=== PATIENT | female | born 1990 | race Caucasian/White ===

== ENCOUNTER 2017-12-27 19:06 | Day surgery (SDC) | payer OTHER ==
[~2017-12-27] VITALS: Ht 160 cm; Wt 65.9 kg
[~2017-12-27 19:06] MED LIST: AMBIEN10 MG PO; MOTRIN800 MG PO; NOHOMEMEDS; celeXA PO
[2017-12-27 20:04] LABS: APPEARANCE CLOUDY ((CLEAR)); BILIRUBIN NEGATIVE; BLOOD MODERATE; COLOR YELLOW ((YELLOW)); GLUCOSE (STRIP) NEGATIVE; KETONES 80; LEUKOCYTES SMALL; NITRITE NEGATIVE; PROTEIN (STRIP) 30; SPECIFIC GRAVITY 1.025 (1.000-1.030); UROBILINOGEN 0.2 MG/DL (0.2-1.0)
[2017-12-27 20:11] LABS: BACTERIA RARE /HPF; EPITHELIAL CELLS 3+ /HPF; MUCUS TRACE /LPF; RED BLOOD CELLS 0-5 /HPF (0-5)
[2017-12-27 20:48] LABS: HEMATOCRIT 42.4 % (36.0-46.0); HEMOGLOBIN 15.2 G/DL (11.9-15.5); MCHC 35.8 G/DL (30.0-36.0); MCV 92.2 FL (83-99); PLATELET COUNT 276 K/uL (156-360); RBC DIS.WIDTH-CV 12.4 % (11.8-14.6); RBC DIS.WIDTH-SD 41.8 % (39-53); WHITE BLOOD COUNT 22.7 K/uL (4.1-10.2)
[2017-12-27 20:49] LABS: ALBUMIN 4.4 g/dL (3.2-4.8)
[2017-12-27 20:50] LABS: CHLORIDE 104 mEq/L (99-109); POTASSIUM 3.8 mEq/L (3.7-5.4); SODIUM 140 mEq/L (136-147)
[2017-12-27 20:52] LABS: GLUCOSE 94 mg/dL (70-99); TOTAL PROTEIN 7.9 g/dL (6.4-8.3)
[2017-12-27 20:54] LABS: TOTAL BILIRUBIN 2.9 mg/dL (0.0-1.0)
[2017-12-27 20:55] LABS: ALKALINE PHOSPHATASE 61 IU/L (3-129)
[2017-12-27 20:56] LABS: CREATININE 0.7 mg/dL (0.6-1.3); GFR ESTIMATE (CALCULATED) > 59 mL/min/
[2017-12-27 20:57] LABS: AST (GOT) 17 IU/L (2-34); UREA NITROGEN (BUN) 11 mg/dL (9-23)
[2017-12-27 20:59] LABS: ALT (GPT) 16 IU/L (3-49); LIPASE 22 U/L (1.0-51.0)
[2017-12-27 21:10] LABS: QUANTITATIVE HCG < 4.0 MIU/ML
[2017-12-27 21:23] LABS: BASOPHIL (%) 0.2 % (0-1); BASOPHIL COUNT 0.1 K/uL (0-0.1); EOSINOPHIL (%) 0 % (0-5); HEMATOCRIT 41.8 % (36.0-46.0); HEMOGLOBIN 14.9 G/DL (11.9-15.5); IMMATURE GRANULOCYTE (%) 0.6 % (0.0-0.7); LYMPHOCYTE (%) 4.9 % (15-42); LYMPHOCYTE COUNT 1.1 K/uL (1.0-2.8); MCH 32.5 PG (29.0-34.0); MCHC 35.6 G/DL (30.0-36.0); MCV 91.3 FL (83-99); MONOCYTE (%) 3.3 % (3-12); MONOCYTE COUNT 0.8 K/uL (0-0.8); NEUTROPHIL COUNT 20.8 K/uL (1.8-6.4); PLATELET COUNT 256 K/uL (156-360); RBC DIS.WIDTH-CV 12.4 % (11.8-14.6); RBC DIS.WIDTH-SD 41.1 % (39-53); RED BLOOD COUNT 4.58 M/uL (3.80-5.20); WHITE BLOOD COUNT 22.8 K/uL (4.1-10.2)
[2017-12-28 05:07] VITALS: BP 141/66
[2017-12-28 07:17] VITALS: BP 127/73
[2017-12-28 11:00] VITALS: BP 127/63
[2017-12-28 11:44] VITALS: BP 106/67
[2017-12-28 11:53] LABS: HEMATOCRIT 38.4 % (36.0-46.0); HEMOGLOBIN 13.2 G/DL (11.9-15.5); MCH 32.4 PG (29.0-34.0); MCHC 34.4 G/DL (30.0-36.0); MCV 94.1 FL (83-99); PLATELET COUNT 229 K/uL (156-360); RBC DIS.WIDTH-CV 12.6 % (11.8-14.6); RBC DIS.WIDTH-SD 43.6 % (39-53); RED BLOOD COUNT 4.08 M/uL (3.80-5.20); WHITE BLOOD COUNT 14.7 K/uL (4.1-10.2)
[2017-12-28 12:14] LABS: ALBUMIN 3.6 G/DL (3.2-4.8); ALKALINE PHOSPHATASE 44 IU/L (3-129); ALT (GPT) 11 IU/L (3-49); AST (GOT) 14 IU/L (2-34); CHLORIDE 103 MEQ/L (99-109); CREATININE 0.5 MG/DL (0.6-1.3); GFR ESTIMATE (CALCULATED) > 59 mL/min/; POTASSIUM 4.4 MEQ/L (3.7-5.4); SODIUM 138 MEQ/L (136-147); TOTAL PROTEIN 6.3 G/DL (6.4-8.3); UREA NITROGEN (BUN) 6 mg/dL (9-23)
[2017-12-28 12:17] LABS: GLUCOSE 120 mg/dL (70-99)
[2017-12-28] MEDS ORDERED: PERCOCET 5/31 TABLET PO (13:45)
[2017-12-28] MEDS ORDERED: AUGMENTIN875 MG PO (13:45)
[2017-12-28] MEDS ORDERED: COLACE100 MG PO (13:45)
== END 2017-12-28 16:29 | disposition home or self-care (01) ==
LOC: EME 19:06 → ENRESERV 23:49 → EME 12-28 03:31 → SDC 12-28 03:31 → 2SOUTH 12-28 04:10 → 2EAST 12-28 04:45
PROVIDERS: Emergency Medicine; Surgery
PROC: 0DTJ0ZZ Resection of Appendix, Open Approach (ICD-10-PCS; principal; 2017-12-28)
DX: K35.80 Unspecified acute appendicitis (principal); E80.6 Other disorders of bilirubin metabolism; N20.0 Calculus of kidney; F41.9 Anxiety disorder, unspecified; F32.9 Major depressive disorder, single episode, unspecified
CPT/HCPCS: 74177; 76705; 80053; 81003; 83605; 83690; 84702; 85025; 85027; 87040; 87070; 87075; 87205; 88304; 93005; 99281; 99284; G0378; J0330; J1100; J1170; J1885; J2405; J2543; J2710; J3010; J3480; J7030; J7050; J7120; J7643; S0020